=== PATIENT | male | born 1975 | race Hispanic/Latino ===

== ENCOUNTER 2021-01-12 07:55 | Emergency (ER) | payer OTHER ==
--- NOTE | 2021-01-12 08:31 | Event Note ---
ED Screening Note Date of service: 01/12/21 Time: 08:30 ED Screening Note: This 45-year-old male with no past medical history presents the ED complaining of left-sided foot redness and swelling and pain greater than right x2 days. Patient states only represents inflammation Covid vaccinated 3 days ago Pain with palpation of the left foot, red and swollen. This initial assessment/diagnostic orders/clinical plan/treatment(s) is/are subject to change based on patients health status, clinical progression and re- assessment by fellow clinical providers in the ED. Further treatment and workup at subsequent clinical providers discretion. Patient/guardian urged not to elope from the ED as their condition may be serious if not clinically assessed and managed. Initial orders include: Basic labs, IV Clinda, pain control.
[2021-01-12] MEDS ORDERED: IBUPROFEN 800 MG TAB PO ONE (09:14)
--- NOTE | 2021-01-12 09:25 | Emergency Department Report ---
ED Lower Extremity HPI - General Chief Complaint: Extremity Problem,Nontraumatic Stated Complaint: FEET EDEMA Time Seen by Provider: 01/12/21 09:13 Source: patient Mode of arrival: Ambulatory Limitations: No Limitations - History of Present Illness Initial Comments: CC: feet swelling HPI: This is a healthy 45 yo male without significant past medical history who presents with bilateral feet swelling for 2 days. He is concerned that COVID vaccine second dose may have caused the reaction. No hx of cellulitis or gout. No recent travel. Pain is mostly in left mid foot with ambulation. He now have right foot swelling. MD Complaint: other -: Gradual, days(s) (2 days) Injury: Knee: Right, Foot: Right, Left Type of Injury: other (no injury) Severity: moderate Severity scale (0 -10): 7 Improves With: rest Worsens With: weight bearing Other Symptoms: other (no other symptoms) Associated Symptoms: ambulatory - Related Data Previous Rx's Medication Instructions Recorded Last Taken Type Colchicine 0.6 mg PO Q2H #4 capsule 01/12/21 Unknown Rx HYDROcodone/APAP 5-325 [[place] 1 each PO QID PRN #15 tablet 01/12/21 Unknown Rx 5/325] Ibuprofen [Motrin 400 MG tab] 400 mg PO QID 5 Days #20 tablet 01/12/21 Unknown Rx Allergies Allergy/AdvReac Type Severity Reaction Status Date / Time No Known Allergies Allergy Unverified 01/12/21 08:08 ED Review of Systems ROS: Stated complaint: FEET EDEMA Other details as noted in HPI Comment: All other systems reviewed and negative Constitutional: denies: chills, fever, malaise Respiratory: denies: cough, shortness of breath Cardiovascular: denies: chest pain Gastrointestinal: denies: abdominal pain, nausea, vomiting, diarrhea Musculoskeletal: denies: back pain ED Past Medical Hx - Past Medical History Previous Medical History?: No - Surgical History Past Surgical History?: No - Social History Smoking Status: Current Every Day Smoker Substance Use Type: None - Medications Home Medications: Home Medications Medication Instructions Recorded Confirmed Last Taken Type Colchicine 0.6 mg PO Q2H #4 capsule 01/12/21 Unknown Rx HYDROcodone/APAP 5-325 [[place] 1 each PO QID PRN #15 tablet 01/12/21 Unknown Rx 5/325] Ibuprofen [Motrin 400 MG tab] 400 mg PO QID 5 Days #20 tablet 01/12/21 Unknown Rx ED Physical Exam - General Limitations: No Limitations General appearance: alert, in no apparent distress, other (steady gait with slight limp) - Head Head exam: Present: atraumatic, normocephalic - Eye Eye exam: Present: normal appearance - ENT ENT exam: Present: mucous membranes moist - Neck Neck exam: Present: normal inspection, full ROM - Respiratory Respiratory exam: Present: normal lung sounds bilaterally. Absent: respiratory distress, wheezes, rales, rhonchi - Cardiovascular Cardiovascular Exam: Present: regular rate, normal rhythm, normal heart sounds. Absent: systolic murmur, diastolic murmur, rubs, gallop - GI/Abdominal GI/Abdominal exam: Present: soft - Extremities Exam Extremities exam: Present: other (bilateral pedal edema with mild sparse erythema, large muscular calves) - Neurological Exam Neurological exam: Present: alert, oriented X3 - Psychiatric Psychiatric exam: Present: normal affect, normal mood - Skin Skin exam: Present: warm, dry, intact, normal color. Absent: rash ED Course Vital Signs 01/12/21 01/12/21 01/12/21 08:08 09:26 09:54 Temperature 98.1 F Pulse Rate 106 H 92 H Respiratory 15 20 18 Rate Blood Pressure 147/89 Blood Pressure 140/80 [Left] O2 Sat by Pulse 98 98 Oximetry ED Lower Extremity MDM - Radiology Data Radiology results: report reviewed Bilateral duplex ultrasound no sonographic evidence for DVT in either lower extremity - Medical Decision Making Clinical impression: pseudogout of both feet: Colchicine ibuprofen [place] prescribed referred to podiatry as an outpatient medicine physician for definitive diagnosis. Critical care attestation.: If time is entered above; I have spent that time in minutes in the direct care of this critically ill patient, excluding procedure time. ED Disposition Clinical Impression: Pseudogout of foot Disposition: DC-01 TO HOME OR SELFCARE Is pt being admited?: No Does the pt Need Aspirin: No Condition: Stable Instructions: Calcium Pyrophosphate Deposition Prescriptions: Colchicine 0.6 mg PO Q2H #4 capsule Ibuprofen [Motrin 400 MG tab] 400 mg PO QID 5 Days #20 tablet HYDROcodone/APAP 5-325 [[place] 5/325] 1 each PO QID PRN #15 tablet PRN Reason: Pain Referrals: ELVIA KHOURY MD [Staff Physician] - 3-5 Days YUNG LEONE DPM [Staff Physician] - 3-5 Days
[2021-01-12 09:56] VITALS: BP 140/80
--- NOTE | 2021-01-12 10:41 | Vascular Lab Report ---
DUPLEX DOPPLER LOWER EXTREMITY VEINS, BILATERAL INDICATION / CLINICAL INFORMATION: bilateral feet swelling. TECHNIQUE: Duplex doppler imaging was performed through the veins of both lower extremities using venous otis alysia and other maneuvers. COMPARISON: None available. FINDINGS: RIGHT COMMON FEMORAL VEIN: Negative. RIGHT FEMORAL VEIN: Negative. RIGHT POPLITEAL VEIN: Negative. RIGHT CALF VEINS: Negative. LEFT COMMON FEMORAL VEIN: Negative. LEFT FEMORAL VEIN: Negative. LEFT POPLITEAL VEIN: Negative. LEFT CALF VEINS: Negative. ADDITIONAL FINDINGS: None. IMPRESSION: 1. No sonographic evidence for DVT in either lower extremity. Signer Name: Tito Martinez MD Signed: 01/12/2021 10:37 AM Workstation Name: [id number]
== END 2021-01-12 15:00 | disposition home or self-care (01) ==
LOC: ED 07:55
DX: M11.272 Other chondrocalcinosis, left ankle and foot (principal); M11.271 Other chondrocalcinosis, right ankle and foot; F17.200 Nicotine dependence, unspecified, uncomplicated; Z79.1 Long term (current) use of non-steroidal anti-inflammatories (NSAID); Z79.899 Other long term (current) drug therapy
CPT/HCPCS: 93970